=== PATIENT | male | born 1985 | race African-American/Black ===

== ENCOUNTER 2017-04-11 11:22 | Emergency (ER) | payer OTHER, MEDICAID ==
[~2017-04-11] VITALS: Ht 185.4 cm; Wt 127.0 kg
[2017-04-11 12:07] VITALS: BP 138/76
== END 2017-04-11 17:02 | disposition left against medical advice (07) ==
LOC: ER 13:22
DX: Z53.21 Procedure and treatment not carried out due to patient leaving prior to being seen by health care provider (principal)

== ENCOUNTER 2017-09-01 00:05 | Emergency (ER) | payer MEDICAID, OTHER ==
[~2017-09-01] VITALS: Ht 185.4 cm; Wt 127.0 kg
[2017-09-01 02:03] LABS: CLARITY URINE CLEAR (CLEAR); COLOR URINE YELLOW (YELLOW); KETONES URINE NEGATIVE (NEGATIVE); LEUKOCYTE ESTERASE URINE NEGATIVE (NEGATIVE); NITRITE URINE NEGATIVE (NEGATIVE); OCCULT BLOOD URINE NEGATIVE (NEGATIVE); PROTEIN URINE 1+ (NEGATIVE); SPECIFIC GRAVITY URINE 1.021 (1.005-1.030); UROBILINOGEN URINE 0.2 E.U./dL (0.2-1.0)
[2017-09-01 05:20] VITALS: BP 118/79
== END 2017-09-01 05:24 | disposition home or self-care (01) ==
LOC: ER 00:05
DX: J45.909 Unspecified asthma, uncomplicated (principal); J32.1 Chronic frontal sinusitis; K21.9 Gastro-esophageal reflux disease without esophagitis; F12.10 Cannabis abuse, uncomplicated
CPT/HCPCS: 71045; 81001; 99285

== ENCOUNTER 2017-11-04 13:58 | Emergency (ER) | payer MEDICAID ==
[~2017-11-04] VITALS: Ht 185.4 cm; Wt 136.0 kg
[2017-11-04] MEDS ORDERED: KETOROLAC 30MG/ML VIAL IM ONE (15:15)
[2017-11-04 15:28] VITALS: BP 136/81
== END 2017-11-04 16:45 | disposition home or self-care (01) ==
LOC: ER 16:14
DX: S10.93XA Contusion of unspecified part of neck, initial encounter (principal); M54.5 Low back pain; M25.512 Pain in left shoulder; K21.9 Gastro-esophageal reflux disease without esophagitis; V43.52XA Car driver injured in collision with other type car in traffic accident, initial encounter; Y93.89 Activity, other specified; Y92.410 Unspecified street and highway as the place of occurrence of the external cause; Y99.8 Other external cause status
CPT/HCPCS: 96372; 99283; J1885

== ENCOUNTER 2017-12-08 15:48 | Emergency (ER) | payer MEDICAID ==
[~2017-12-08] VITALS: Ht 185.4 cm; Wt 137.0 kg
[2017-12-08] MEDS ORDERED: FAMOTIDINE 20MG/2ML VIAL IV STA (16:15)
[2017-12-08] MEDS ORDERED: METOCLOPRAMIDE HCL 10MG/2ML VIAL IV STA (16:15)
[2017-12-08] MEDS ORDERED: MORPHINE SULFATE 4 MG/ML CPJ (NOT FOR IM USE) IV STA (16:15)
[2017-12-08 18:02] LABS: BASOPHILS % 0.9 % (0.0-2.0); EOSINOPHILS % 1.3 % (0.0-5.0); HEMATOCRIT. 39.9 % (42.0-52.0); HEMOGLOBIN. 13.3 g/dL (14.0-18.0); LYMPHOCYTES % 40.1 % (20.0-50.0); MEAN CORPUSCULAR HEMOGLOBIN 28.1 pg (28.0-32.0); MEAN CORPUSCULAR VOLUME 84.6 fL (80.0-94.0); MEAN PLATELET VOLUME 8.7 fl (7.4-10.4); MONOCYTES % 6.4 % (2.0-8.0); NEUTROPHILS % 51.3 % (40.0-76.0); PLATELET 322 x1000/uL (130-400); RED BLOOD CELL COUNT 4.72 mill/uL (4.7-6.1); RED CELL DISTRIBUTION WIDTH 13.1 % (11.6-14.6)
[2017-12-08 18:04] LABS: CHLORIDE 100 mEq/L (98-107)
[2017-12-08 18:07] LABS: PROTHROMBIN TIME 10.2 sec (9.4-11.6)
[2017-12-08 19:34] LABS: CLARITY URINE CLEAR (CLEAR); COLOR URINE YELLOW (YELLOW); KETONES URINE NEGATIVE (NEGATIVE); LEUKOCYTE ESTERASE URINE NEGATIVE (NEGATIVE); NITRITE URINE NEGATIVE (NEGATIVE); OCCULT BLOOD URINE NEGATIVE (NEGATIVE); PH URINE 6.5 (4.5-8.0); PROTEIN URINE NEGATIVE (NEGATIVE); SPECIFIC GRAVITY URINE 1.015 (1.005-1.030); UROBILINOGEN URINE 0.2 E.U./dL (0.2-1.0)
[2017-12-08 20:41] VITALS: BP 138/84
== END 2017-12-08 21:06 | disposition home or self-care (01) ==
LOC: ER 17:59
DX: R10.84 Generalized abdominal pain (principal); R51 Headache; R53.1 Weakness; K21.9 Gastro-esophageal reflux disease without esophagitis
CPT/HCPCS: 36415; 71045; 76705; 80053; 81003; 83690; 84484; 85025; 85610; 93005; 96374; 96375; 99285; J2270; J2765; J3490; Z7610

== ENCOUNTER 2018-03-06 10:29 | Emergency (ER) | payer MEDICAID ==
[~2018-03-06] VITALS: Ht 185.4 cm; Wt 136.0 kg
[2018-03-06] MEDS ORDERED: KETOROLAC 30MG/ML VIAL IM ONE (13:45)
[2018-03-06] MEDS ORDERED: METHOCARBAMOL 500MG TABLET PO ONE (13:45)
[2018-03-06 15:37] VITALS: BP 127/88
== END 2018-03-06 15:39 | disposition home or self-care (01) ==
LOC: ER 10:29
DX: S16.1XXA Strain of muscle, fascia and tendon at neck level, initial encounter (principal); M54.5 Low back pain; V49.49XA Driver injured in collision with other motor vehicles in traffic accident, initial encounter; Y93.89 Activity, other specified; Y92.411 Interstate highway as the place of occurrence of the external cause; R03.0 Elevated blood-pressure reading, without diagnosis of hypertension
CPT/HCPCS: 72040; 72100; 96372; 99284; J1885

== ENCOUNTER 2018-10-21 23:38 | Emergency (ER) | payer MEDICAID ==
[~2018-10-21] VITALS: Ht 185.4 cm; Wt 152.4 kg
[2018-10-22] MEDS ORDERED: ONDANSETRON HCL 4MG/2ML INJ IV STA (00:41)
[2018-10-22] MEDS ORDERED: FAMOTIDINE 20MG/2ML VIAL IV STA (00:41)
[2018-10-22] MEDS ORDERED: SODIUM CHLORIDE 0.9% 1,000 ML IV ONE (00:41)
[2018-10-22] MEDS ORDERED: MAGNESIUM/ALUMINUM HYDROXIDE/SIMETHICONE 30ML UDC PO ONE (00:45)
[2018-10-22 00:57] LABS: BASOPHILS % 1.2 % (0.0-2.0); HEMATOCRIT. 38.8 % (42.0-52.0); HEMOGLOBIN. 12.8 g/dL (14.0-18.0); LYMPHOCYTES % 36.4 % (20.0-50.0); MEAN CORPUSCULAR HEMOGLOBIN 27.9 pg (28.0-32.0); MEAN CORPUSCULAR VOLUME 84.5 fL (80.0-94.0); MONOCYTES % 7.3 % (2.0-8.0); NEUTROPHILS % 53.1 % (40.0-76.0); PLATELET 304 x1000/uL (130-400); RED BLOOD CELL COUNT 4.59 mill/uL (4.7-6.1)
[2018-10-22 01:04] LABS: CHLORIDE 102 mEq/L (98-107)
[2018-10-22 01:08] LABS: ETHANOL BLOOD < 10 mg/dL
[2018-10-22] MEDS ORDERED: ONDANSETRON HCL 4MG/2ML INJ IV ONE (01:45)
[2018-10-22] MEDS ORDERED: KETOROLAC 30MG/ML VIAL IV ONE (02:45)
[2018-10-22] MEDS ORDERED: METOCLOPRAMIDE HCL 10MG/2ML VIAL IV ONE (02:45)
[2018-10-22] MEDS ORDERED: LORAZEPAM 2MG/ML CPJ IV ONE (04:45)
[2018-10-22 06:10] VITALS: BP 123/71
[2018-10-22] MEDS ORDERED: SIMETHICONE 80MG TABLET CHEW PO SCH (08:20)
== END 2018-10-22 06:10 | disposition home or self-care (01) ==
LOC: ER 23:38
DX: K21.9 Gastro-esophageal reflux disease without esophagitis (principal); K29.70 Gastritis, unspecified, without bleeding; R06.6 Hiccough; Z87.442 Personal history of urinary calculi
CPT/HCPCS: 36415; 80053; 80320; 83690; 83880; 84484; 85025; 96361; 96374; 96375; 96376; 99283; J1885; J2060; J2405; J2765; J3490; J7030; Z7610; G0480